=== PATIENT | female | born 1975 | race Caucasian/White ===

== ENCOUNTER 2016-10-30 05:10 | Day surgery (SDC) | payer BC, OTHER ==
[2016-10-27 17:27] VITALS: BMI 25.8
[2016-10-30] MEDS ORDERED: LIDOCAINE HCL/PF 2% SDV 5ML VIAL ONE (07:53)
[2016-10-30] MEDS ORDERED: MIDAZOLAM HCL 2 MG/2 ML SINGLE DOSE VIAL ONE (07:53)
[2016-10-30] MEDS ORDERED: PROPOFOL 20 ML ONE ×2 (07:53→08:11)
[2016-10-30] MEDS ORDERED: ROCURONIUM BROMIDE 50 MG/5 ML VIAL ONE (07:53)
[2016-10-30] MEDS ORDERED: BUPIVACAINE HCL/PF 0.5% (5MG/ML) 10 ML VIAL ONE (07:57)
[2016-10-30] MEDS ORDERED: ceFAZolin SODIUM 1 GM VIAL IVPB ONE (08:21)
[2016-10-30] MEDS ORDERED: ceFAZolin SODIUM 1 GM VIAL ONE (08:21)
[2016-10-30] MEDS ORDERED: DEXAMETHASONE SOD PHOSPHATE 4 MG/1 ML VIAL ONE (08:35)
[2016-10-30] MEDS ORDERED: NEOSTIGMINE METHYLSULFATE 0.5 MG/ML - 10 ML MDV ONE (08:35)
[2016-10-30] MEDS ORDERED: KETOROLAC TROMETHAMINE 30 MG/1 ML VIAL ONE (08:35)
[2016-10-30] MEDS ORDERED: BUPIVACAINE HCL/PF (5 MG/ML) 30 ML VIAL IJ ONE ×2 (08:40)
[2016-10-30] MEDS ORDERED: oxyCODONE HCL 5 MG TABLET PO PRN (08:47)
[2016-10-30] MEDS ORDERED: ONDANSETRON 4 MG/2 ML VIAL IVPUSH PRN (08:47)
[2016-10-30] MEDS ORDERED: LACTATED RINGERS SOLUTION 1,000 ML IV SCH ×2 (09:00→09:15)
[2016-10-30] MEDS ORDERED: IBUPROFEN 600 MG TABLET (FP) PO PRN (09:13)
[2016-10-30] MEDS ORDERED: IBUPROFEN 800 MG/8 ML IJ IVPB PRN (09:13)
--- NOTE | 2016-10-30 09:13 | HP ---
History & Physical Update - History History: No Change - Physical Physical: No Change - Assessment Assessment: No Change - Plan Plan: No Change
[2016-10-30] MEDS ORDERED: ACETAMINOPHEN 1000 MG/100 ML VIAL (NON FORMULARY) IVPB ONE ×2 (09:25→10:15)
[2016-10-30] MEDS ORDERED: GLYCOPYRROLATE 0.2 MG/1 ML VIAL ONE (09:49)
--- NOTE | 2016-10-30 10:44 | OP ---
DATE OF OPERATION: PREOPERATIVE DIAGNOSIS: Voluntary sterilization, multiparity, and malfunction of intrauterine device. SURGERY: Laparoscopic bilateral salpingectomy and removal of IUD. POSTOPERATIVE DIAGNOSIS: Voluntary sterilization, multiparity, and malfunction of intrauterine device. Normal tubes and ovaries. SURGEON: Darlyn Meyer MD MANUFACTURING MAINTENANCE TECHNICIAN: Iveth Villafana DO FINDINGS: Normal tubes and ovaries. Cervix dilated and IUD removed. PROCEDURE: The patient was taken to the operating room and placed in dorsal lithotomy position, prepped and draped in usual sterile fashion. Time-out was performed in accordance with hospital regulation. Attention was then drawn to the umbilicus where a 5-mm umbilical incision was made. A Veress needle was inserted into the cavity. Approximately 3-4 L of CO2 was insufflated. The Veress needle was then removed and a 5-mm trocar was inserted. Two lower abdomen incisions were made in the left and the right side, and trocars were directly inserted. camera with visualization revealed normal tubes and ovaries and normal uterus. LigaSure was then inserted in a grasper, and bilateral salpingectomy was then performed. Tubes were then submitted to Pathology and removed. CO2 was removed from the abdomen after hemostasis was established. Incisions were then closed using 4-0 Biosyn in subcuticular fashion. Steri-Strips placed. Wounds washed and dressed. After Rodney catheter had been inserted, cervix was then dilated, and IUD was then removed. All instruments were then removed. Estimated blood loss was 3 mL. DARLYN MEYER M.D. [facility]/[id number]
[2016-10-30 10:45] VITALS: TEMP 97.9
[2016-10-30 12:44] VITALS: BP 122/69; PULSE 73
--- NOTE | 2016-10-31 13:54 | PATH ---
Surgical Pathology Report Patient Name: NITA DESOUZA [facility]. Rec. #: [id number] /Age/Gender: 1975 (Age: 41) / F Account: [id number] Location: [facility] Taken: 10/30/2016 Received: 10/30/2016 Reported: 10/31/2016 Physicians: Darlyn Meyer M.D. Specimen(s) Received A: IUD B: RIGHT FALLOPIAN TUBE C: LEFT FALLOPIAN TUBE Clinical History Voluntary sterilization Final Diagnosis A. FREIGHT DELIVERY DRIVER, UTERINE CAVITY, REMOVAL: IUD (GROSS ONLY). B. RIGHT FALLOPIAN TUBE, SALPINGECTOMY: FULL LUMINAL PORTION OF FALLOPIAN TUBE INCLUDING FIMBRIATED END. C. LEFT FALLOPIAN TUBE, SALPINGECTOMY: FULL LUMINAL PORTION OF FALLOPIAN TUBE INCLUDING FIMBRIATED END. Electronically Signed Jd Mckinnon M.D. Gross Description A. Received fresh labeled "removed IUD," is a 3 cm in length T-shaped device, consistent with an intrauterine device. No soft tissue is present. No sections are submitted, gross only. B. Received in formalin labeled "right fallopian tube," is a 4.5 cm in length fimbriated fallopian tube. The outer surface is wall-pink and smooth. Sectioning reveals an unremarkable lumen. Wall And Floor Tiler sections are submitted in 2 cassettes as follows: 1-fimbria; 2-cross sections of fallopian tube. C. Received in formalin labeled "left fallopian tube," are 2 separate portions of fallopian tube measuring 2.0 and 3.5 cm in length. The longer portion is fimbriated. The outer surfaces are wall-pink and smooth. Sectioning reveals an unremarkable lumen. Wall And Floor Tiler sections are submitted in 2 cassettes as follows: 1-fimbria; 2-cross sections of fallopian tube. DL/10/30/2016 saudi/10/30/2016
== END 2016-10-30 13:02 | disposition home or self-care (01) ==
LOC: JASU-SURG 05:10
PROVIDERS: ATTEND Obstetrics & Gynecology
PROC: 0UT74ZZ Resection of Bilateral Fallopian Tubes, Percutaneous Endoscopic Approach (ICD-10-PCS; principal; 2016-10-30 08:00)
PROC: 0UPD7HZ Removal of Contraceptive Device from Uterus and Cervix, Via Natural or Artificial Opening (ICD-10-PCS; 2016-10-30 08:00)
DX: Z30.2 Encounter for sterilization (principal); Z30.432 Encounter for removal of intrauterine contraceptive device
CPT/HCPCS: 86850; 86900; 86901; 88300-TC; 88302-TC; 94760